=== PATIENT | male | born 1960 | race Caucasian/White ===

== ENCOUNTER 2024-05-02 19:57 | Emergency (ER) | payer OTHER, SELFPAY ==
[2024-05-02] VITALS (10 sets, daily range): BP systolic 89–129; BP diastolic 67–76
[2024-05-02 20:03] LABS: Glucose - Point of Care 134 mg/dl (70-99)
--- NOTE | 2024-05-02 20:23 | ED.GENMED ---
History of Present Illness
General
Chief Complaint: Fainting/Passed Out
Source: patient and ambulance crew
Exam Limitations: none
Time Seen by Provider: 05/02/24 20:22
Nursing documentation reviewed up to this point in time: agreed with
History of Present Illness
History of Present Illness:
64-year-old male with a past medical history of hypertension, diabetes who presents to the ER for evaluation after syncopal episode. Patient reports that he was in his normal state of health today. He says the smoked a small amount of marijuana
which he does daily. He says he came downstairs to the dinner table and began to feel lightheaded and apparently syncopized and struck head. He says that he is felt dizzy and nauseated since. He denies any chest pain. Denies any shortness of
breath. He denies any significant headache or neck pain. He denies any abdominal or flank pain. He says he has not had similar symptoms in the past. Denies any known cardiac history.
Review of Systems
Review of Systems
All Other Systems: ROS reviewed and negative except as documented in HPI and ROS
Constitutional: Denies fever
Respiratory: Denies trouble breathing
Cardiac: Reports syncope; Denies chest pain or palpitations
ABD/GI: Reports nausea; Denies abdominal pain or vomiting
: Denies flank pain
Musculoskeletal: Denies neck pain or back pain
Neurological: Reports dizzy; Denies headache
Phy Exam
Physical Exam
Physical Exam:
General: Awake, alert, oriented x3; no acute distress
Head: Normocephalic, atraumatic
Eyes: Conjunctiva normal, pupils equal round and reactive to light bilaterally
Throat: Airway intact, handling secretions
Neck: Trachea midline, supple without meningismus
Lungs: Clear to auscultation bilaterally, no wheezing, rales, rhonchi
Heart: Regular rate and rhythm, no murmurs, gallops, or rubs
Abd: Soft, non distended, nontender
Neuro: No gross deficits
Extremities: No edema in extremities, equal pulses in all extremities
Scores
Heart Failure Risk
Heart Failure Risk Score: Not Applicable
Heart Score for Chest Pain Patients
STEMI patient?: Not applicable
Withdrawal Assessment of Alcohol
Withdrawal Assessment Completed?: Not applicable
Course
Orders/Labs/Results
Orders:
Orders
05/02/24 19:58
EKG [Electrocardiogram (*1)] Urgent
Reason for Study: Syncope
EKG- Treatment ONCE
05/02/24 20:18
CMP [Comprehensive Metabolic Panel] Urgent
Complete Blood Count/With Diff Urgent
Troponin I Urgent
05/02/24 20:22
Ondansetron Injectable [Zofran] 4 mg IV NOW STA
05/02/24 20:23
CT Head W/o Iv Contrast Urgent
Comment:
Reason For Exam: syncope, dizziness, headstrike
05/02/24 20:26
0.9% Sodium Chloride 1000 ml [Nss] 1,000 ml IV BOLUS
05/02/24 23:01
Troponin I Urgent
05/02/24 23:16
Electrocardiogram (*1) Urgent
Reason for Study: Syncope
EKG- Treatment ONCE
Abnormal Lab Results
05/02/24 05/02/24
20:02 20:18
WBC 11.1 H 10^3/uL
(4.8-10.8)
MCH 32.0 H pg
(27.0-31.0)
Abs Immat Gran (auto) 0.1 H 10^3/uL
(0-0.05)
Absolute Lymphs (auto) 5.1 H 10^3/uL
(1.2-3.4)
Absolute Monos (auto) 0.9 H 10^3/uL
(0.1-0.6)
Immature Gran % 0.6 H %
(0-0.5)
Neutrophils % 41.2 L %
(42.2-75.2)
Carbon Dioxide 19 L mmol/L
(22-30)
BUN 22 H mg/dl
(9-20)
Glucose 154 H mg/dl
(70-99)
ALT 58 H U/L
(0-50)
POC Glucose 134 H mg/dl
(70-99)
05/02/24 20:18
05/02/24 20:18
Vital Signs
Initial and Last Documented VS:
Initial Vital Signs
Pulse Resp BP Pulse Ox
71 17 129/73 97
05/02/24 20:04 05/02/24 20:04 05/02/24 20:04 05/02/24 20:04
Last Documented Vital Signs
Temp Pulse Resp BP Pulse Ox
36.4 C 83 18 123/75 96
05/02/24 20:06 05/02/24 23:30 05/02/24 23:30 05/02/24 23:30 05/02/24 23:30
MDM/Problems Addressed
Differential Diagnosis Includes:
Dysrhythmia, vasovagal, drug intoxication/marijuana use, electrolyte derangement, subarachnoid hemorrhage/brain bleed
MDM/Problems Addressed:
64-year-old male presents for evaluation after syncopal event�he smokes/vapes some marijuana, came downstairs and began to feel lightheaded and passed out, struck his head. Has had some lightheadedness/dizziness and nausea since. Vitals and exam
as above. Accu-Chek normal on arrival. EKG shows sinus rhythm. Will place an IV check labs including a CBC to CMP, troponin. Check CT head. Will monitor on telemetry reassess after the above.
Patient becoming nauseated and had a few episodes of vomiting here. Treat with Zofran. Provide fluids. Continue to monitor.
Labs reviewed: CBC shows marginal leukocytosis, CMP no clinically significant abnormalities. Troponin negative x 1, repeat pending. CT head negative. Patient says that he feels well after Zofran, eager to be discharged. Continue to monitor.
Suspect that this may be vasovagal syncope, possibly symptoms related to marijuana use immediately prior to onset.
Repeat troponin negative. Vital signs normal on reassessment. Patient feeling well. Stable for discharge. Will refer to cardiology in the emergency caution after syncopal event but suspect may have been vasovagal episode possibly marijuana
related. Patient comfortable to this plan. Spoke about follow-up plan and return precautions.
*Radiology
Radiology exam reviewed: radiology read reviewed
*Pulse Oximetry
Patient hypoxic: no
*EKG
Interpreted by ED Provider?: Yes
Heart Rate: 71
Rate: normal
Rhythm: sinus
[place]: normal axis
Interval: normal interval
QRS Pattern: normal QRS
Ischemia: no ischemia
*Critical Care Note
Total Time (30-74mins, 75-104mins- exclusive of procedures): Not Applicable
Data Reviewed
Source: patient and ambulance crew
ED Attending Note
-
Portions of this chart may have been created with voice recognition software.� Occasional wrong word or��sound alike� substitutions may have occurred due to the inherent limitations of voice recognition software.
Discharge Plan
Departure
Patient Disposition: Home (Routine Discharge)
Date of Disposition: 05/02/24
Time of Disposition: 23:45
Patient with high blood pressure during this ER visit?: No
Discharge Problem:
Syncope
Instructions: Syncope (Fainting) (DC)
Referrals:
Yg Sorto MD [Family Provider] - Follow up in 5-7 days
Sulaiman Longo MD [Active] - Call in 1-3 days for appt
Activity Restrictions/Additional Instructions:
Thank you for visiting the Emergency Department at [facility].
1. Please schedule a follow up appointment as directed. Call first thing tomorrow morning to make an appointment.
2. If indicated, please take your medications as instructed and indicated on discharge paperwork.
3. If any of your symptoms do not improve, or persist, or become more severe within 6-12 hours, please return to the emergency department for further care.
4. Please return to the emergency department if you develop a headache, neck pain/stiffness, fever greater than 100.4F, chest pain, shortness of breath, persistent nausea, vomiting, slurred speech, difficulty walking, numbness/tingling, weakness,
signs of infection or any other symptoms that are worrisome to you.
Please call [phone] if you have any questions.
Interventions
Interventions:
*Risk Screen - Suicide Last Done: 05/02/24 20:09
*General Assessment Last Done: 05/02/24 20:09
*Neglect/Abuse Screening Last Done: 05/02/24 20:09
*ED- Fall Risk Assessment Last Done: 05/02/24 20:09
*ED COVID-19 Vaccine History Last Done: 05/02/24 20:09
ED- Cardiac Assessment Last Done: 05/02/24 20:46
ED- Neurological Assessment Last Done: 05/02/24 20:46
Discharge Date and Time
Print Language: GIBRALTARIAN
[2024-05-02 20:24] LABS: % Eosinophils 3.6 % (0-6); % Immature Granulocytes 0.6 % (0-0.5); % Lymphocytes 45.7 % (20.5-51.1); % Monocytes 7.9 % (1.7-9.3); % Neutrophils 41.2 % (42.2-75.2); Absolute Basophils 0.1 10^3/uL (0-0.2); Absolute Eosinophils 0.4 10^3/uL (0-0.7); Absolute Immature Granulocytes 0.1 10^3/uL (0-0.05); Absolute Lymphocytes 5.1 10^3/uL (1.2-3.4); Absolute Monocytes 0.9 10^3/uL (0.1-0.6); Absolute Neutrophils 4.6 10^3/uL (1.4-6.5); Hematocrit 44.5 % (39.0-52.0); Hemoglobin 15.8 g/dL (13.0-18.0); Mean Corp Hgb Conc. 35.5 g/dL (33.0-37.0); Mean Corpuscular Volume 90.3 fL (80.0-94.0); Nucleated Red Blood Cells % 0 % (-); Platelet Count 227 10^3/uL (130-400); Red Blood Cell Count 4.93 10^6/uL (4.70-6.10); Red Cell Dist. Width 12.4 % (11.5-14.5); White Blood Cell Count 11.1 10^3/uL (4.8-10.8)
[2024-05-02] MEDS: ZOFRAN 4 MG IV (20:25)
[2024-05-02] MEDS: NSS 1000 IV (20:30)
[2024-05-02 20:44] LABS: ALT (SGPT) 58 U/L (0-50); AST (SGOT) 39 U/L (17-59); Alkaline Phosphatase 61 U/L (38-126); Blood Urea Nitrogen 22 mg/dl (9-20); Calcium 9.3 mg/dl (8.4-10.2); Carbon Dioxide 19 mmol/L (22-30); Chloride 106 mmol/L (98-107); Estimated Creatinine Clearance 75 ml/min; Glucose 154 mg/dl (70-99); Potassium 3.9 mmol/L (3.5-5.1); Sodium 137 mmol/L (135-145); Total Bilirubin 0.7 mg/dl (0.2-1.3); Total Protein 6.6 g/dl (6.3-8.2); eGFR > 60.00
[2024-05-02 20:48] LABS: Troponin I 0.018 ng/ml
== END 2024-05-03 00:15 | disposition home or self-care (01) ==
LOC: EMR 19:57
PROVIDERS: EMERGENCY PHYSICIAN Emergency Medicine; FAMILY PHYSICIAN Family Medicine
DX: R55 Syncope and collapse (principal); R11.2 Nausea with vomiting, unspecified; I10 Essential (primary) hypertension; E11.9 Type 2 diabetes mellitus without complications; F12.90 Cannabis use, unspecified, uncomplicated
CPT/HCPCS: 99285; 96374; 96361; 70450; 80053; 82962; 84484; 85025; 93005